=== PATIENT | male | born 1975 | race Caucasian/White ===

== ENCOUNTER 2018-05-08 16:51 | Inpatient (IN) | payer SELFPAY ==
[~2018-05-08] VITALS: Ht 165.1 cm; Wt 79.4 kg
[2018-05-08] MEDS ORDERED: MORPHINE SULFATE 4 MG/ML CPJ (NOT FOR IM USE) IV ONE ×2 (17:30→19:45)
[2018-05-08] MEDS ORDERED: LIDOCAINE HCL 1% 20ML VIAL (Pyxis) INJ INFIL ONE ×3 (17:30)
[2018-05-08] MEDS ORDERED: LIDOCAINE HCL/PF 1% 10 MG/ML 5ML VIAL IJ ONE (18:00)
[2018-05-08] MEDS ORDERED: LIDOCAINE HCL/PF 1% 10 MG/ML 5ML VIAL IJ NR (18:30)
[2018-05-08 19:14] LABS: BASOPHILS % 0.4 % (0.0-2.0); EOSINOPHILS % 1.1 % (0.0-5.0); HEMATOCRIT. 37.6 % (42.0-52.0); HEMOGLOBIN. 12.3 g/dL (14.0-18.0); LYMPHOCYTES % 13.6 % (20.0-50.0); MEAN CORPUSCULAR HEMOGLOBIN 28.5 pg (28.0-32.0); MEAN CORPUSCULAR VOLUME 86.9 fL (80.0-94.0); MEAN PLATELET VOLUME 10.3 fl (7.4-10.4); NEUTROPHILS % 80.9 % (40.0-76.0); PLATELET 214 x1000/uL (130-400); RED BLOOD CELL COUNT 4.32 mill/uL (4.7-6.1); RED CELL DISTRIBUTION WIDTH 14.3 % (11.6-14.6)
[2018-05-08 19:19] LABS: CHLORIDE 109 mEq/L (98-107)
[2018-05-08 19:28] LABS: CREATINE KINASE 246 IU/L (39-308)
[2018-05-08] MEDS ORDERED: SODIUM CHLORIDE 0.9% 1,000 ML IV ONE (22:00)
[2018-05-08] MEDS ORDERED: DOCUSATE SODIUM 100MG CAPSULE PO PRN (22:15)
[2018-05-08] MEDS ORDERED: ACETAMINOPHEN 325MG TABLET PO PRN (22:15)
[2018-05-08] MEDS ORDERED: ONDANSETRON HCL 4MG/2ML INJ IV PRN (22:15)
[2018-05-08] MEDS ORDERED: IPRATROPIUM/ALBUTEROL 0.5-3(2.5)MG/3ML NEB INH PRN (22:15)
[2018-05-08] MEDS ORDERED: GUAIFENESIN 200MG/10ML SUGAR FREE UDC PO PRN (22:15)
[2018-05-08] MEDS ORDERED: LORAZEPAM 2MG/ML CPJ IV PRN (22:15)
[2018-05-08] MEDS ORDERED: MAGNESIUM/ALUMINUM HYDROXIDE/SIMETHICONE 30ML UDC PO PRN (22:15)
[2018-05-08] MEDS: DIPHENHYDRAMINE 50MG/ML VIAL IV PRN (23:29)
[2018-05-08] MEDS: CLONIDINE 0.1MG TABLET PO PRN (23:30)
[2018-05-08] MEDS: MORPHINE SULFATE 4 MG/ML CPJ (NOT FOR IM USE) IV PRN (23:30)
[2018-05-08] MEDS ORDERED: FENTANYL CITRATE/PF 50MCG/ML 2ML VIAL IV ONE (23:45)
[2018-05-09] MEDS ORDERED: NA PHOS,M-B/NA PHOS,DI-BA ENEMA 118ML PR PRN (01:33)
[2018-05-09 01:55] VITALS: BP 162/102
[2018-05-09 04:00] VITALS: BP 152/96
[2018-05-09 05:39] LABS: BASOPHILS % 0.3 % (0.0-2.0); EOSINOPHILS % 1.4 % (0.0-5.0); HEMATOCRIT. 34.9 % (42.0-52.0); HEMOGLOBIN. 11.6 g/dL (14.0-18.0); LYMPHOCYTES % 19.4 % (20.0-50.0); MEAN CORPUSCULAR HEMOGLOBIN 28.6 pg (28.0-32.0); MEAN CORPUSCULAR VOLUME 86.2 fL (80.0-94.0); MEAN PLATELET VOLUME 10.4 fl (7.4-10.4); MONOCYTES % 5.8 % (2.0-8.0); NEUTROPHILS % 73.1 % (40.0-76.0); PLATELET 188 x1000/uL (130-400); RED BLOOD CELL COUNT 4.05 mill/uL (4.7-6.1); RED CELL DISTRIBUTION WIDTH 14.2 % (11.6-14.6)
[2018-05-09 05:47] LABS: CHLORIDE 111 mEq/L (98-107)
[2018-05-09] MEDS ORDERED: LISI-186 MT (06:21)
[2018-05-09] MEDS ORDERED: GLYB5TAB7 MT (06:21)
[2018-05-09 08:00] VITALS: BP 161/93
[2018-05-09] MEDS: ENOXAPARIN 40MG/0.4ML SYR SUBCUT SCH (08:17)
[2018-05-09] MEDS: MORPHINE SULFATE 4 MG/ML CPJ (NOT FOR IM USE) IV PRN ×4 (08:17→21:53)
[2018-05-09] MEDS ORDERED: ASPIRIN 81MG EC TABLET PO SCH (09:00)
[2018-05-09] MEDS: SODIUM CHLORIDE 0.45% 1,000 ML IV SCH ×3 (11:15→20:42)
[2018-05-09] MEDS ORDERED: DEXTROSE 50% WATER 50ML SYRINGE IV PRN (11:45)
[2018-05-09 12:00] VITALS: BP 141/96
[2018-05-09] MEDS: BLOOD SUGAR DIAGNOSTIC STRIP TEST SCH ×3 (13:01→21:22)
[2018-05-09] MEDS: INSULIN LISPRO 100 UNITS/ML SUBCUT SCH ×3 (13:19→21:00)
[2018-05-09 15:08] LABS: CLARITY URINE CLOUDY (CLEAR); COLOR URINE YELLOW (YELLOW); KETONES URINE NEGATIVE (NEGATIVE); LEUKOCYTE ESTERASE URINE 1+ (NEGATIVE); NITRITE URINE NEGATIVE (NEGATIVE); OCCULT BLOOD URINE TRACE (NEGATIVE); PROTEIN URINE 1+ (NEGATIVE); SPECIFIC GRAVITY URINE 1.015 (1.005-1.030); UROBILINOGEN URINE 0.2 E.U./dL (0.2-1.0)
[2018-05-09 16:00] VITALS: BP 158/102
[2018-05-09] MEDS: CLONIDINE 0.1MG TABLET PO PRN (17:01)
[2018-05-09 20:00] VITALS: BP 133/90
[2018-05-10] VITALS: BP 142/93
[2018-05-10] MEDS: MORPHINE SULFATE 4 MG/ML CPJ (NOT FOR IM USE) IV PRN ×6 (02:17→23:19)
[2018-05-10 04:00] VITALS: BP 159/88
[2018-05-10] MEDS: SODIUM CHLORIDE 0.45% 1,000 ML IV SCH ×2 (04:08→23:23)
[2018-05-10 06:00] LABS: BASOPHILS % 0.3 % (0.0-2.0); EOSINOPHILS % 2.5 % (0.0-5.0); HEMATOCRIT. 33.5 % (42.0-52.0); HEMOGLOBIN. 11.2 g/dL (14.0-18.0); LYMPHOCYTES % 20.1 % (20.0-50.0); MEAN CORPUSCULAR HEMOGLOBIN 29.1 pg (28.0-32.0); MEAN CORPUSCULAR VOLUME 87.1 fL (80.0-94.0); MEAN PLATELET VOLUME 10.7 fl (7.4-10.4); MONOCYTES % 6.4 % (2.0-8.0); NEUTROPHILS % 70.7 % (40.0-76.0); PLATELET 182 x1000/uL (130-400); RED BLOOD CELL COUNT 3.85 mill/uL (4.7-6.1); RED CELL DISTRIBUTION WIDTH 14.1 % (11.6-14.6)
[2018-05-10 06:19] LABS: PHOSPHORUS 3.2 mg/dL (2.5-4.9)
[2018-05-10] MEDS: BLOOD SUGAR DIAGNOSTIC STRIP TEST SCH ×4 (06:36→21:05)
[2018-05-10] MEDS: INSULIN LISPRO 100 UNITS/ML SUBCUT SCH ×4 (07:50→21:00)
[2018-05-10 08:00] VITALS: BP 159/95
[2018-05-10 12:00] VITALS: BP 165/102
[2018-05-10] MEDS ORDERED: VANCOMYCIN HCL 500 MG/VIAL ONE (14:42)
[2018-05-10 16:00] VITALS: BP 164/103
[2018-05-10] MEDS ORDERED: NEOSTIGMINE METHYLSULFATE 1MG/ML 10 ML VIAL ONE (17:16)
[2018-05-10] MEDS ORDERED: PROPOFOL 200MG/20ML VIAL IV ONE (17:16)
[2018-05-10] MEDS ORDERED: ROCURONIUM BROMIDE 10MG/ML VIAL 5ML IV ONE (17:16)
[2018-05-10] MEDS ORDERED: FENTANYL CITRATE/PF 50MCG/ML 2ML VIAL ONE (17:16)
[2018-05-10] MEDS ORDERED: MIDAZOLAM HCL 2 MG/2 ML VIAL ONE (17:16)
[2018-05-10] MEDS ORDERED: GLYCOPYRROLATE 0.2 MG/ML 2ML VIAL ONE (17:16)
[2018-05-10] MEDS ORDERED: ONDANSETRON HCL 4MG/2ML INJ ONE (17:33)
[2018-05-10] MEDS ORDERED: DEXAMETHASONE 4MG/ML 1ML VIAL ONE (17:33)
[2018-05-10] MEDS ORDERED: HYDROMORPHONE HCL/PF 2MG/ML (OR) ONE (17:46)
[2018-05-10] MEDS ORDERED: LABETALOL 5MG/ML SYR 20 MG/4 ML SYRINGE IV PRN (18:00)
[2018-05-10] MEDS ORDERED: MEPERIDINE HCL/PF 25MG/ML CPJ IV PRN (18:00)
[2018-05-10] MEDS ORDERED: ONDANSETRON HCL 4MG/2ML INJ IV PRN (18:00)
[2018-05-10] MEDS: HYDROMORPHONE HCL/PF 2MG/ML CPJ IV PRN ×5 (18:16→18:48)
[2018-05-10 20:00] VITALS: BP 143/85
[2018-05-10] MEDS: CEFAZOLIN 1000MG PREMIX 50 ML IV SCH (21:04)
[2018-05-10] MEDS: DIPHENHYDRAMINE 50MG/ML VIAL IV PRN (23:52)
[2018-05-11] VITALS: BP 130/84
[2018-05-11] MEDS: CEFAZOLIN 1000MG PREMIX 50 ML IV SCH ×2 (03:12→04:06)
[2018-05-11 04:00] VITALS: BP 146/78
[2018-05-11] MEDS: MORPHINE SULFATE 4 MG/ML CPJ (NOT FOR IM USE) IV PRN ×4 (04:03→18:53)
[2018-05-11] MEDS: BLOOD SUGAR DIAGNOSTIC STRIP TEST SCH ×4 (06:27→21:38)
[2018-05-11 07:23] LABS: HEMATOCRIT 33.1 % (42.0-52.0); MEAN CORPUSCULAR HEMOGLOBIN 28.7 pg (28.0-32.0); MEAN CORPUSCULAR VOLUME 86.6 fL (80.0-94.0); PLATELET 200 x1000/uL (130-400); RED BLOOD CELL COUNT 3.82 mill/uL (4.7-6.1); RED CELL DISTRIBUTION WIDTH 14.2 % (11.6-14.6)
[2018-05-11 08:00] VITALS: BP 155/90
[2018-05-11] MEDS: INSULIN LISPRO 100 UNITS/ML SUBCUT SCH ×4 (08:53→21:20)
[2018-05-11 12:00] VITALS: BP 132/95
[2018-05-11] MEDS: SODIUM CHLORIDE 0.45% 1,000 ML IV SCH ×2 (14:10→14:11)
[2018-05-11 16:00] VITALS: BP 156/94
[2018-05-11 20:00] VITALS: BP 163/94
[2018-05-12] VITALS: BP 160/100
[2018-05-12] MEDS: MORPHINE SULFATE 4 MG/ML CPJ (NOT FOR IM USE) IV PRN ×2 (00:45→10:58)
[2018-05-12] MEDS: CLONIDINE 0.1MG TABLET PO PRN ×2 (00:45→18:03)
[2018-05-12 04:00] VITALS: BP 130/90
[2018-05-12] MEDS: SODIUM CHLORIDE 0.45% 1,000 ML IV SCH ×3 (06:07→18:04)
[2018-05-12] MEDS: HYDROCODONE/ACETAMINOPHEN 10/325MG TABLET PO PRN ×4 (06:12→22:05)
[2018-05-12 08:00] VITALS: BP 135/86
[2018-05-12] MEDS: BLOOD SUGAR DIAGNOSTIC STRIP TEST SCH ×4 (08:12→21:45)
[2018-05-12] MEDS: INSULIN LISPRO 100 UNITS/ML SUBCUT SCH ×4 (08:50→21:44)
[2018-05-12] MEDS: ENOXAPARIN 40MG/0.4ML SYR SUBCUT SCH (08:53)
[2018-05-12 12:00] VITALS: BP 145/87
[2018-05-12 16:00] VITALS: BP 147/93
[2018-05-12 20:00] VITALS: BP 121/81
[2018-05-13] VITALS: BP 148/101
[2018-05-13] MEDS: MORPHINE SULFATE 4 MG/ML CPJ (NOT FOR IM USE) IV PRN (00:03)
[2018-05-13 04:00] VITALS: BP 154/96
[2018-05-13] MEDS: SODIUM CHLORIDE 0.45% 1,000 ML IV SCH (04:47)
[2018-05-13] MEDS: HYDROCODONE/ACETAMINOPHEN 10/325MG TABLET PO PRN ×2 (06:31→11:42)
[2018-05-13] MEDS: CLONIDINE 0.1MG TABLET PO PRN (06:33)
[2018-05-13 06:55] LABS: BASOPHILS % 0.3 % (0.0-2.0); EOSINOPHILS % 2.4 % (0.0-5.0); HEMATOCRIT. 31.5 % (42.0-52.0); HEMOGLOBIN. 10.4 g/dL (14.0-18.0); LYMPHOCYTES % 23.7 % (20.0-50.0); MEAN CORPUSCULAR HEMOGLOBIN 28.9 pg (28.0-32.0); MEAN CORPUSCULAR VOLUME 87.5 fL (80.0-94.0); MONOCYTES % 6.9 % (2.0-8.0); NEUTROPHILS % 66.7 % (40.0-76.0); PLATELET 214 x1000/uL (130-400); RED CELL DISTRIBUTION WIDTH 14.2 % (11.6-14.6)
[2018-05-13] MEDS: BLOOD SUGAR DIAGNOSTIC STRIP TEST SCH ×2 (06:55→11:53)
[2018-05-13 08:00] VITALS: BP 149/90
[2018-05-13] MEDS: ENOXAPARIN 40MG/0.4ML SYR SUBCUT SCH (08:36)
[2018-05-13] MEDS: INSULIN LISPRO 100 UNITS/ML SUBCUT SCH ×2 (08:37→13:10)
[2018-05-13 12:00] VITALS: BP 161/97
[2018-05-13 13:18] VITALS: BP 141/88
== END 2018-05-13 14:43 | disposition home or self-care (01) | DRG 313 ==
LOC: ER 17:02 → EDBEDREQ 19:39 → 6EST 21:32 → EDBEDREQ 21:43 → EDBEDREQTM 21:43 → ENRESERV 22:19
PROVIDERS: ADMIT Internal Medicine; ATTEND Internal Medicine
PROC: 3E0T3BZ Introduction of Anesthetic Agent into Peripheral Nerves and Plexi, Percutaneous Approach (ICD-10-PCS; 2018-05-08)
PROC: 0QSJXZZ Reposition Right Fibula, External Approach (ICD-10-PCS; 2018-05-10)
PROC: 0QSG36Z Reposition Right Tibia with Intramedullary Internal Fixation Device, Percutaneous Approach (ICD-10-PCS; principal; 2018-05-10 16:00)
DX: S82.51XA Displaced fracture of medial malleolus of right tibia, initial encounter for closed fracture (principal); N17.0 Acute kidney failure with tubular necrosis; E44.1 Mild protein-calorie malnutrition; D64.9 Anemia, unspecified; E11.9 Type 2 diabetes mellitus without complications; I10 Essential (primary) hypertension; S82.451A Displaced comminuted fracture of shaft of right fibula, initial encounter for closed fracture; W20.8XXA Other cause of strike by thrown, projected or falling object, initial encounter; Y93.H3 Activity, building and construction; Y92.89 Other specified places as the place of occurrence of the external cause; Y99.8 Other external cause status; Z68.29 Body mass index [BMI] 29.0-29.9, adult; Z79.84 Long term (current) use of oral hypoglycemic drugs
CPT/HCPCS: 36415; 73590; 73610; 76000; 76770; 80048; 80053; 81003; 82550; 82962; 83735; 84100; 85025; 85027; 85610; 87077; 87086; 87186; 96374; 96375; 96376; 97110; 97116; 97162; 97530; 99285; J0690; J1100; J1170; J1200; J1650; J1815; J2060; J2250; J2270; J2405; J2704; J2710; J3010; J3370; J3490; J7030